=== PATIENT | female | born 2000 | race Hispanic/Latino ===

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

== ENCOUNTER → 2023-07-14 | Emergency (ER) | payer MEDICAID, OTHER ==
[~2023-07-14] VITALS: Ht 167.6 cm; Wt 74.8 kg
[~2023-07-14] MED LIST changes: +AMOX1TAB16 PO; +IBUP-2077 PO; -IOHEXOL-350 75 ML VIAL IV ONE
[2023-07-14] MEDS: ACETAMINOPHEN 500 MG TABLET PO ONE (20:01)
[2023-07-14 20:11] LABS: SARS-CoV-2, RNA, NAAT NEGATIVE SARS CoV-2 (NEGATIVE)
[2023-07-14 20:19] LABS: INFLUENZA TYPE A Negative For Type A (NEGATIVE); INFLUENZA TYPE B Negative For Type B (NEGATIVE)
[2023-07-14 20:21] LABS: APPEARANCE,URINE CLEAR (CLEAR); BILIRUBIN,URINE NEGATIVE (NEGATIVE); COLOR,URINE YELLOW (YELLOW); GLUCOSE, URINE (UA) NEGATIVE (NEGATIVE); KETONES,URINE 10 mg/dL (NEGATIVE); LEUKOCYTE ESTERASE ,URINE NEGATIVE Leu/uL (NEGATIVE); NITRATE,URINE NEGATIVE (NEGATIVE); OCCULT BLOOD,URINE MODERATE (NEGATIVE); PH,URINE 5.5 (5.0-8.0); PROTEIN,URINE 30 mg/dL (NEGATIVE)
[2023-07-14 20:23] LABS: ADD UA MICROSCOPIC YES
[2023-07-14 20:29] LABS: MUCUS,URINE FEW LPF (None Seen); SQUAMOUS EPITHELIAL CELL,UR FEW /HPF (0-2)
[2023-07-14 20:35] LABS: HCG,QUALITATIVE URINE NEGATIVE (NEGATIVE)
[2023-07-14 20:36] LABS: RAPID GROUP A STREP positive (NEGATIVE)
[2023-07-14 20:41] VITALS: TEMP 102.3
[2023-07-14] MEDS: IBUPROFEN 400 MG TABLET ONE (20:41)
[2023-07-14] MEDS: IBUPROFEN 800 MG TAB PO ONE (20:42)
[2023-07-14 21:40] VITALS: BP 130/80; PULSE 105; RESP 19; O2SAT 100
[2023-07-14] MEDS: CEFTRIAXONE 1G VIAL IM ONE (21:47)
== END ==
LOC: EDH 19:38
DX: J03.00 Acute streptococcal tonsillitis, unspecified (principal); R50.9 Fever, unspecified; Z20.822 Contact with and (suspected) exposure to COVID-19
CPT/HCPCS: 99283; 87635; 87880; 87804 ×2; 81001; 81025; 96372; J0696